=== PATIENT | male | born 1985 | race African-American/Black ===

== ENCOUNTER 2021-01-31 06:34 | Emergency (ER) | payer OTHER ==
[~2021-01-31] VITALS: Ht 180.3 cm; Wt 73.0 kg
[~2021-01-31 06:34] MED LIST: FAMO-135 MT; IBUP-2029 MT; MAG-55 MT; ONDA4TAB5 MT
[2021-01-31] MEDS ORDERED: MAGNESIUM/ALUMINUM HYDROXIDE/SIMETHICONE 30ML UDC PO STA (07:09)
[2021-01-31] MEDS ORDERED: VISCOUS LIDOCAINE 2% 15 ML UDC PO STA (07:09)
[2021-01-31] MEDS ORDERED: DICYCLOMINE 10 MG/5 ML ORAL SYR PO STA (07:09)
[2021-01-31] MEDS ORDERED: KETOROLAC 30MG/ML VIAL IV STA (07:09)
[2021-01-31] MEDS ORDERED: ONDANSETRON HCL 4MG/2ML INJ IV STA (07:09)
[2021-01-31 07:45] LABS: BASOPHILS % 0.4 % (0.0-2.0); EOSINOPHILS % 0.2 % (0.0-5.0); HEMATOCRIT. 42.2 % (42.0-52.0); HEMOGLOBIN. 13.7 g/dL (14.0-18.0); LYMPHOCYTES % 10.4 % (20.0-50.0); MEAN CORPUSCULAR HEMOGLOBIN 30.1 pg (28.0-32.0); MEAN CORPUSCULAR VOLUME 92.7 fL (80.0-94.0); MONOCYTES % 5.4 % (2.0-8.0); NEUTROPHILS % 83.6 % (40.0-76.0); RED BLOOD CELL COUNT 4.56 mill/uL (4.7-6.1); RED CELL DISTRIBUTION WIDTH 14.1 % (11.6-14.6)
[2021-01-31 07:50] LABS: CHLORIDE 110 mEq/L (98-107)
[2021-01-31 07:54] LABS: INR 1.1; PROTHROMBIN TIME 11.9 sec (9.6-11.0)
[2021-01-31] MEDS ORDERED: TOPUD PO (08:45)
[2021-01-31] MEDS ORDERED: ONDA4TAB5 PO (08:45)
[2021-01-31] MEDS ORDERED: MORPHINE SULFATE 4 MG/ML CPJ (NOT FOR IM USE) IV ONE (08:45)
[2021-01-31] MEDS ORDERED: MORPHINE SULFATE 2 MG/ML CPJ (NOT FOR IM USE) IV NR (09:00)
[2021-01-31 09:21] LABS: MEAN PLATELET VOLUME 10.3 fl (7.4-10.4)
[2021-01-31 09:22] LABS: PLATELET 118 x1000/uL (130-400)
[2021-01-31 10:59] VITALS: BP 120/67
[2021-01-31 11:30] LABS: CLARITY URINE CLEAR (CLEAR); COLOR URINE YELLOW (YELLOW); KETONES URINE 3+ (NEGATIVE); LEUKOCYTE ESTERASE URINE NEGATIVE (NEGATIVE); NITRITE URINE NEGATIVE (NEGATIVE); OCCULT BLOOD URINE NEGATIVE (NEGATIVE); PROTEIN URINE NEGATIVE (NEGATIVE); SPECIFIC GRAVITY URINE 1.016 (1.005-1.030); UROBILINOGEN URINE 0.2 E.U./dL (0.2-1.0)
== END 2021-01-31 11:00 | disposition home or self-care (01) ==
LOC: ER 06:34
DX: R10.9 Unspecified abdominal pain (principal); R11.2 Nausea with vomiting, unspecified; F17.200 Nicotine dependence, unspecified, uncomplicated; F12.10 Cannabis abuse, uncomplicated; Z79.899 Other long term (current) drug therapy
CPT/HCPCS: 36415; 74176; 80053; 81003; 83690; 85025; 85610; 96374; 96375; 99284; J1885; J2270; J2405

== ENCOUNTER 2021-02-08 09:02 | Emergency (ER) | payer OTHER ==
[~2021-02-08] VITALS: Ht 167.6 cm; Wt 80.0 kg
[~2021-02-08 09:02] MED LIST changes: +ONDA4TAB5 PO; +TOPUD PO
[2021-02-08] MEDS ORDERED: ONDANSETRON HCL 4MG/2ML INJ IV STA (09:13)
[2021-02-08] MEDS ORDERED: FAMOTIDINE 20MG/2ML VIAL IV ONE (09:15)
[2021-02-08] MEDS ORDERED: SODIUM CHLORIDE 0.9% 1,000 ML IV ONE (09:15)
[2021-02-08] MEDS ORDERED: KETOROLAC 15MG/ML VIAL IV ONE (09:45)
[2021-02-08 10:52] LABS: HEMATOCRIT. 42.4 % (42.0-52.0); HEMOGLOBIN. 13.8 g/dL (14.0-18.0); MEAN CORPUSCULAR HEMOGLOBIN 29.9 pg (28.0-32.0); MEAN CORPUSCULAR VOLUME 92.2 fL (80.0-94.0); MEAN PLATELET VOLUME 9.3 fl (7.4-10.4); PLATELET 135 x1000/uL (130-400)
[2021-02-08 10:59] LABS: CHLORIDE 108 mEq/L (98-107)
[2021-02-08 11:05] LABS: ETHANOL BLOOD < 10 mg/dL
[2021-02-08 11:38] LABS: ATYPICAL LYMPHOCYTES 1; PLATELET ESTIMATE NORMAL
[2021-02-08] MEDS ORDERED: OMEP20CA14 MT (13:06)
[2021-02-08 13:51] VITALS: BP 125/60
== END 2021-02-08 13:55 | disposition home or self-care (01) ==
LOC: ER 09:17
DX: R10.9 Unspecified abdominal pain (principal); F12.10 Cannabis abuse, uncomplicated; R11.2 Nausea with vomiting, unspecified
CPT/HCPCS: 36415; 80053; 80320; 83690; 85025; 93005; 96361; 96374; 96375; 99285; J1885; J2405; J3490; J7030; G0480

== ENCOUNTER 2024-04-18 11:15 | Emergency (ER) | payer OTHER, MEDICAID ==
[~2024-04-18] VITALS: Ht 180.3 cm; Wt 75.0 kg
[~2024-04-18 11:15] MED LIST changes: +OMEP20CA14 MT
[2024-04-18 11:31] VITALS: O2SAT 100
[2024-04-18 12:32] LABS: HEMATOCRIT. 41.3 % (42.0-52.0); HEMOGLOBIN. 13.2 g/dL (14.0-18.0); MEAN CORPUSCULAR HEMOGLOBIN 29.8 pg (28.0-32.0); MEAN CORPUSCULAR VOLUME 93.2 fL (80.0-94.0); MEAN PLATELET VOLUME 9.5 fl (7.4-10.4); PLATELET 135 x1000/uL (130-400); RED BLOOD CELL COUNT 4.43 mill/uL (4.7-6.1); WHITE BLOOD COUNT 9.6 x1000/uL (4.5-11.0)
[2024-04-18 12:36] LABS: DIFFERENTIAL COMMENT 1
[2024-04-18 12:37] LABS: CHLORIDE 108 mEq/L (98-107); POTASSIUM 4.5 mEq/L (3.5-5.1); SODIUM 145 mEq/L (136-145)
[2024-04-18 12:38] LABS: CALCIUM 9.8 mg/dL (8.7-10.4); CARBON DIOXIDE 29 mEq/L (21-32)
[2024-04-18 12:43] LABS: CREATININE 1.3 mg/dL (0.6-1.3); GLUCOSE 106 mg/dL (70-105); UREA NITROGEN BLOOD 10 mg/dL (9-23)
[2024-04-18 12:45] LABS: ALANINE AMINOTRANSFERASE 46 IU/L (10-49); ALBUMIN 4.3 g/dL (3.2-4.8); ASPARTATE AMINOTRANSFERASE 45 IU/L (<34); BILIRUBIN DIRECT 0.2 mg/dL (<=3.0); BILIRUBIN TOTAL 0.6 mg/dL (0.1-1.0)
[2024-04-18 13:21] LABS: PLATELET ESTIMATE NORMAL
[2024-04-18] MEDS: ONDANSETRON 4MG ODT PO ONE (15:53)
[2024-04-18] MEDS: ACETAMINOPHEN 325MG TABLET PO ONE (15:53)
[2024-04-18] MEDS: MAGNESIUM/ALUMINUM HYDROXIDE/SIMETHICONE 30ML UDC PO ONE (15:55)
[2024-04-18] MEDS ORDERED: MAG-55 MT (17:24)
[2024-04-18] MEDS ORDERED: FAMO-135 MT (17:24)
[2024-04-18] MEDS ORDERED: ONDA4TAB50 MT (17:24)
[2024-04-18] MEDS ORDERED: ACET-2708 MT (17:24)
[2024-04-18] MEDS ORDERED: TOPUD MT (17:24)
[2024-04-18 17:30] VITALS: BP 103/61; PULSE 77; RESP 18; TEMP 37.05852; O2SAT 98
== END 2024-04-18 17:36 | disposition home or self-care (01) ==
LOC: ER 11:15
DX: K21.9 Gastro-esophageal reflux disease without esophagitis (principal); R11.2 Nausea with vomiting, unspecified; R19.7 Diarrhea, unspecified; F12.90 Cannabis use, unspecified, uncomplicated; F41.9 Anxiety disorder, unspecified; Z79.899 Other long term (current) drug therapy; Z20.822 Contact with and (suspected) exposure to COVID-19
CPT/HCPCS: 99284; 87426; 80076; 80048; 83690; 85025; 87804 ×2; 36415; Q0162